=== PATIENT | male | born 1940 | race Caucasian/White ===

== ENCOUNTER → 2018-05-14 | Outpatient (CLI) | payer OTHER ==
[~2018-05-14] MED LIST: ATEN25 PO; Aspir 8181 MG PO; Atenolol25 MG PO; CYAN1000 PO; FERR325 PO; Humalog100 UNIT/1; INSDET100 SC; LEVSOD75 PO; LISHYD1012 PO; MECL12.5 PO; METF500 PO; Omeprazole20 M1; SIMV40 PO; SITA100T2 PO; TOUJEO SOL300 UNIT/1 SQ; Zofran8 MG PO
== END ==
LOC: LAB SHORT 11:19 → PLD 11:19
DX: D04.22 Carcinoma in situ of skin of left ear and external auricular canal (principal)
CPT/HCPCS: 88305

== ENCOUNTER 2018-06-15 09:57 | Emergency (ER) | payer OTHER ==
[~2018-06-15] VITALS: Ht 182.9 cm; Wt 104.3 kg
[~2018-06-15 09:57] MED LIST changes: -MECL12.5 PO; -Zofran8 MG PO
[2018-06-15 10:25] LABS: BASOPHILS ABSOLUTE AUTO 0.04 K/mm3 (0.00-0.23); BASOPHILS PERCENT AUTO 0 % (0-2); EOSINOPHILS ABSOLUTE AUTO 0.07 K/mm3 (0.00-0.68); EOSINOPHILS PERCENT AUTO 1 % (0-6); Hematocrit 49.5 % (37.0-53.0); Hemoglobin 15.9 g/dL (13.5-17.5); IMMATURE GRAN ABSOLUTE AUTO 0.04 K/mm3 (0.00-0.10); IMMATURE GRAN PERCENT AUTO 0 % (0-1); LYMPHOCYTES ABSOLUTE AUTO 0.68 K/mm3 (0.84-5.20); LYMPHOCYTES PERCENT AUTO 5 % (21-46); MONOCYTES ABSOLUTE AUTO 0.85 K/mm3 (0.16-1.47); MONOCYTES PERCENT AUTO 6 % (4-13); Mean Corpuscular HGB 29.8 pg (26.0-34.0); Mean Corpuscular HGB Conc 32.1 g/dL (31.5-36.5); Mean Corpuscular Volume 93 fL (80-100); Mean Platelet Volume 9.7 fL (9.1-12.4); NEUTROPHILS PERCENT AUTO 87 % (41-73); Platelet Count 265 K/mm3 (150-400); RDW Coefficient Variation 12.8 % (11.7-14.2); RDW Standard Deviation 43.7 fL (35.1-46.3); Red Blood Cell Count 5.33 M/mm3 (4.30-5.90); White Blood Cell Count 13.18 K/mm3 (4.00-11.30)
[2018-06-15 10:38] LABS: Alanine Aminotransfer (ALT/SGP 26 U/L (12-78); Albumin, Blood 3.7 g/dL (3.4-5.0); Albumin/Globulin Ratio 0.8 (0.8-1.8); Alk Phos 94 U/L (50-136); Anion Gap 9 mmol/L (6-16); Aspartate Aminotrans (AST/SGOT 19 U/L (12-37); Bilirubin, Total 0.4 mg/dL (0.1-1.0); Blood Urea Nitrogen 16 mg/dL (8-24); Bun/Creatinine Ratio 15.1 (12.0-20.0); CO2, Blood 27 mmol/L (21-32); Calcium, Blood 9.2 mg/dL (8.5-10.1); Chloride, Blood 105 mmol/L (98-108); Creatinine, Blood 1.06 mg/dL (0.60-1.20); Globulin, Blood 4.7 g/dL (2.2-4.0); Glomerular Filtration Rate >60 (60-); Glucose, Blood 177 mg/dL (70-99); Potassium, Blood 4.1 mmol/L (3.5-5.5); Sodium, Blood 141 mmol/L (136-145); Total Protein, Blood 8.4 g/dL (6.4-8.2)
[2018-06-15] MEDS ORDERED: MECL12.5 PO (12:33)
[2018-06-15] MEDS ORDERED: Zofran8 MG PO (12:33)
== END 2018-06-15 12:57 | disposition home or self-care (01) ==
LOC: ER 09:57
PROVIDERS: Internal Medicine
DX: H83.09 Labyrinthitis, unspecified ear (principal); R42 Dizziness and giddiness; R11.2 Nausea with vomiting, unspecified; Z79.4 Long term (current) use of insulin; Z79.899 Other long term (current) drug therapy; Z79.82 Long term (current) use of aspirin; E11.9 Type 2 diabetes mellitus without complications; I10 Essential (primary) hypertension; E78.5 Hyperlipidemia, unspecified; E66.9 Obesity, unspecified; Z87.891 Personal history of nicotine dependence
CPT/HCPCS: 36415; 80053; 83690; 85025; 93005; 93010; 96374; 96375; 99284-25; J2405; J7120

== ENCOUNTER 2019-10-31 05:27 | Day surgery (SDC) | payer OTHER ==
[~2019-10-31] VITALS: Ht 177.8 cm; Wt 97.0 kg
[~2019-10-31 05:27] MED LIST changes: +ATOR20 PO; +CIDAFLEX TABLE1 EACH PO; +Lisinopril2.5 MG PO; +MAGNESIUM OXID500 MG PO; +MECL12.5 PO; +Primidone50 MG PO; +TOUJEO SOL300 UNIT/2 SC; +Zofran8 MG PO
--- NOTE | 2019-10-31 09:59 | NUR ---
1000 BEGAN REMOVIGN AIR FROM THE TR BAND, NO BLEEDIN NOTED. FINGERS WARM TO TOUCH AND PLETH GOOD.
--- NOTE | 2019-10-31 11:03 | NUR ---
1050 PATIENT UP AND DRESSED. ALL AIR OUT OF TR ABND SINCE 1010. NO BLEEDING NOTED. PIV REMOVED AND CATHETER TIP INTACT. PRESSURE DRESSING APPLIED. ALL BELONGINGS GATHERED. VVS, NO PAIN NOTED. REVIEWED ALL DISCHARGE INSTRUCTIONS AND SIGNATURES OBTAINED. COPIED GIVEN. PATIENT DISCHARGED TO [facility] VIA WHEELCHAIR WITH FOLLOW UP APPOINTMENT NOTED.
== END 2019-10-31 11:00 | disposition home or self-care (01) ==
LOC: MHTC 05:27
PROC: B201YZZ Plain Radiography of Multiple Coronary Arteries using Other Contrast (ICD-10-PCS; principal; 2019-10-31)
PROC: 4A023N7 Measurement of Cardiac Sampling and Pressure, Left Heart, Percutaneous Approach (ICD-10-PCS; principal; 2019-10-31)
DX: I25.119 Atherosclerotic heart disease of native coronary artery with unspecified angina pectoris (principal); R07.89 Other chest pain; E78.00 Pure hypercholesterolemia, unspecified; I10 Essential (primary) hypertension; E11.9 Type 2 diabetes mellitus without complications; R91.1 Solitary pulmonary nodule; E78.5 Hyperlipidemia, unspecified; G47.33 Obstructive sleep apnea (adult) (pediatric); Z79.4 Long term (current) use of insulin; Z87.891 Personal history of nicotine dependence; Z79.82 Long term (current) use of aspirin; Z79.899 Other long term (current) drug therapy
CPT/HCPCS: 76937; 93454; C1769; C1894; J1644; J2250; J3010; J7030; J7040; Q9967

== ENCOUNTER 2019-12-19 09:52 | Day surgery (SDC) | payer OTHER ==
[~2019-12-19] VITALS: Ht 180.3 cm; Wt 96.9 kg
[~2019-12-19 09:52] MED LIST changes: +METOPROLOL SUCC25 MG PO; -Omeprazole20 M1; +Omeprazole20 M1 PO
[2019-12-19] MEDS ORDERED: NOVOLOG100 UNIT/3 SC (10:56)
[2019-12-19] MEDS ORDERED: ASCO500 PO (10:57)
[2019-12-19] MEDS ORDERED: FERROUS SULFAT325 M3 PO (10:58)
[2019-12-19] MEDS ORDERED: [UNRECOGNIZED DRUG - CODE] PO (10:58)
--- NOTE | 2019-12-19 14:25 | NUR ---
PT TO RECOVERY ROOM POST PROCEDURE. PT AWAKE AND ORIENTED, CONVERSING APPROPRIATELY, DENIES PAIN POST PROCEDURE. MONITOR SR 90'S, B/P 141/83, AFEBRILE, SPO2 98% RA. L CHEST-PACEMAKER SITE, NO SWELLING/HEMATOMA, TELFA AND TEGADERM DRSG INTACT.
--- NOTE | 2019-12-19 16:35 | NUR ---
PT ARRIVED FROM [facility] VIA WHEEL CHAIR. REPORT RECIEVED FROM [facility]. PACER TO LEFT CHEST WITH SCANT AMOUNT OF IODINE SHOWING THROUGH. DENIES PAIN OR CONCERNS. HYPERTENSION, MONITORING VITALS AT THIS TIME.
--- NOTE | 2019-12-19 17:38 | NUR ---
PT CONTINUES TO HAVE HYPERTENSION POST PROCEDURE. CALL TO DR HOLLAND DUE TO PT NOT TAKING HOME LISINOPRIL. DR INSTRUCTS TO GIVE DOSE OF LISINOPRIL NOW AND TO RESTART METOPROLOL THAT PT RECENTLY STOPPED. PT AWARE
--- NOTE | 2019-12-19 19:32 | NUR ---
SHIFT SUMMARY: PT'S PACER SITE CLEAN AND DRY WITH SOME IODINE SHOWING ON DRESSING. SINUS RHYTHM TO SINUS TACH 90S-LOW 100S. PROBABLE DC TOMORROW. SLING IN PLACE. PT FOLLOWING MOVEMENT RESTRICTIONS WELL
--- NOTE | 2019-12-19 19:44 | NUR ---
ASSUMING CARE OF PT- 1900 PATIENT IS RESTING IN BED. HE IS NEUROLOGICALLY INTACT. BEDSIDE MACHINE II COREMAKER SHOWS SINUS TACHYCARDIA. BP SLIGHTLY HYPERTENSIVE. PACER SITE IS CDI WITH THE EXCEPTION OF SOME IODINE ON THE DRESSING. NO CREPITUS PALPATED. PATIENT COMPLAINING OF MINIMAL PAIN AT THE SITE. SLING IS IN PLACE. REINFORCED IMPORTANCE OF MOBILITY PRECAUTIONS. CALL LIGHT WITHIN REACH. NO NEEDS AT THIS TIME.
--- NOTE | 2019-12-20 05:52 | NUR ---
END OF SHIFT SUMMARY PATIENT REMAINED NEUROLOGICALLY OVERNIGHT. HE AMBULATED WELL TO THE TOILET WITH NO ASSISTANCE. THE BEDSIDE CONTROLS PROJECT ENGINEER SHOWED NSR WELL A PACED RHYTHM INTERMITTENTLY. TACHYCARDIC AT TIMES IN THE LOW 100S. NO BRADYCARDIA. NO COMPLAINTS OF DIZZINESS WITH POSITION CHANGES. SURGICAL DRESSING DRY AND INTACT WITH MINIMAL DRAINGAGE. MINIMAL COMPLAINTS OF DISCOMFORT. DENIED NEED FOR PAIN MEDICATION. SLING IN PLACE. BP SLIGHTLY HYPERTENSIVE OVERNIGHT. SBP MOSTLY MAINTAINING IN THE 140S. LUNGS CLEAR. TOLERATING ROOM AIR. TOLERATING DIET. BM X 1 THIS SHIFT. SKIN INTACT WITH EXCEPTION OF SURGICAL INCISION. PIV X [address] POST-OP IV ABX GIVEN.
--- NOTE | 2019-12-20 07:11 | NUR ---
ASSUMED CARE: PT RESTING QUIETLY. NSR ON TELE IN THE 80S AT THIS TIME. NO ACUTE NEEDS OR CONCERNS AT THIS TIME.
--- NOTE | 2019-12-20 09:47 | NUR ---
DISCUSSED DISCHARGE INSTRUCTIONS WITH PT AFTER XRAY AND DR HOLLAND CAME TO SEE HIM AND CHANGED HIS DRESSING TO PACER SITE. PT AWARE OF ARM MOVEMENT RESTRICTIONS AND WEARING SLING. NOTED TO BE PRACTICING SAFE MOVEMENT ACTIVITY WHILE DRESSING. IV REMOVED WNL. INFORMATION GIVEN ABOUT FOLLOW UP APPOINTMENTS. NO FURTHER NEEDS OR CONCERNS. ESCORTED OUT VIA WHEEL CHAIR. CALL TO TO LET HER KNOW PT FORGOT [place] HERE. AWAITING RESPONSE FROM PT
== END 2019-12-20 09:40 | disposition home or self-care (01) ==
LOC: MHTC 09:52 → ICUE 16:17 → MHTC 12-20 09:40
DX: I49.5 Sick sinus syndrome (principal); E11.9 Type 2 diabetes mellitus without complications; E78.5 Hyperlipidemia, unspecified; I11.9 Hypertensive heart disease without heart failure; I08.3 Combined rheumatic disorders of mitral, aortic and tricuspid valves; G47.33 Obstructive sleep apnea (adult) (pediatric); I25.10 Atherosclerotic heart disease of native coronary artery without angina pectoris; Z79.82 Long term (current) use of aspirin; Z79.899 Other long term (current) drug therapy; Z87.891 Personal history of nicotine dependence; Z79.4 Long term (current) use of insulin
CPT/HCPCS: 33208; 71045; 71046; 76937; 82947; 99152; 99153; A9270-GY; C1785; C1894; C1898; J0690; J1644; J2250; J3010; J7030; J7040

== ENCOUNTER 2019-12-30 11:08 | Emergency (ER) | payer OTHER ==
[~2019-12-30] VITALS: Ht 177.8 cm; Wt 95.2 kg
[~2019-12-30 11:08] MED LIST changes: +ASCO500 PO; +FERROUS SULFAT325 M3 PO; +NOVOLOG100 UNIT/3 SC; +[UNRECOGNIZED DRUG - CODE] PO
[2019-12-30 11:54] LABS: BASOPHILS ABSOLUTE AUTO 0.07 K/mm3 (0.00-0.23); BASOPHILS PERCENT AUTO 1 % (0-2); EOSINOPHILS ABSOLUTE AUTO 0.05 K/mm3 (0.00-0.68); EOSINOPHILS PERCENT AUTO 0 % (0-6); Hematocrit 43.8 % (37.0-53.0); Hemoglobin 14.7 g/dL (13.5-17.5); IMMATURE GRAN ABSOLUTE AUTO 0.07 K/mm3 (0.00-0.10); IMMATURE GRAN PERCENT AUTO 1 % (0-1); LYMPHOCYTES ABSOLUTE AUTO 2.06 K/mm3 (0.84-5.20); LYMPHOCYTES PERCENT AUTO 14 % (21-46); MONOCYTES ABSOLUTE AUTO 1.39 K/mm3 (0.16-1.47); MONOCYTES PERCENT AUTO 9 % (4-13); Mean Corpuscular HGB 30.6 pg (26.0-34.0); Mean Corpuscular HGB Conc 33.6 g/dL (31.5-36.5); Mean Corpuscular Volume 91 fL (80-100); Mean Platelet Volume 9.5 fL (9.1-12.4); NEUTROPHILS ABSOLUTE AUTO 11.13 K/mm3 (1.96-9.15); NEUTROPHILS PERCENT AUTO 75 % (41-73); Platelet Count 273 K/mm3 (150-400); RDW Coefficient Variation 12.9 % (11.7-14.2); Red Blood Cell Count 4.81 M/mm3 (4.30-5.90); White Blood Cell Count 14.77 K/mm3 (4.00-11.30)
[2019-12-30 12:20] LABS: Alanine Aminotransfer (ALT/SGP 20 U/L (12-78); Albumin, Blood 3.3 g/dL (3.4-5.0); Albumin/Globulin Ratio 0.7 (0.8-1.8); Alk Phos 107 U/L (50-136); Anion Gap 5 mmol/L (6-16); Aspartate Aminotrans (AST/SGOT 35 U/L (12-37); Bilirubin, Total 0.7 mg/dL (0.1-1.0); Blood Urea Nitrogen 15 mg/dL (8-24); Bun/Creatinine Ratio 15.1 (12.0-20.0); CO2, Blood 28 mmol/L (21-32); Calcium, Blood 9.5 mg/dL (8.5-10.1); Chloride, Blood 104 mmol/L (98-108); Globulin, Blood 4.5 g/dL (2.2-4.0); Glomerular Filtration Rate >60 (60-); Glucose, Blood 115 mg/dL (70-99); Potassium, Blood 4.9 mmol/L (3.5-5.5); Sodium, Blood 137 mmol/L (136-145); Total Protein, Blood 7.8 g/dL (6.4-8.2); Troponin I <0.015 ng/mL (0.000-0.040)
[2019-12-30] MEDS ORDERED: ACETAMINOPHEN500 MG PO (19:30)
[2019-12-30] MEDS ORDERED: Pepcid20 MG PO (19:30)
== END 2019-12-30 19:47 | disposition home or self-care (01) ==
LOC: ER 11:08
PROVIDERS: Emergency Medicine
DX: R07.81 Pleurodynia (principal); R00.0 Tachycardia, unspecified; R91.1 Solitary pulmonary nodule; Z79.1 Long term (current) use of non-steroidal anti-inflammatories (NSAID); Z79.4 Long term (current) use of insulin; Z79.899 Other long term (current) drug therapy; Z79.82 Long term (current) use of aspirin
CPT/HCPCS: 36415; 71046; 71260; 80053; 82947; 84484; 85025; 85379; 93005; 93010; 96374-59; 99284-25; A9270; Q9967